=== PATIENT | female | born 1980 | race Caucasian/White ===

== ENCOUNTER 2017-11-27 10:38 | Emergency (ER) | payer OTHER ==
--- NOTE | 2017-11-27 12:07 | UC ---
Laceration HPI - History Of Current Complaint Chief Complaint: UCLaceration Stated Complaint: FINGER LAC Time Seen by Provider: 11/27/17 11:34 Hx Last Menstrual Period: 11/05/17 Pain Intensity: 0 - Allergies/Home Medications Allergies/Adverse Reactions: Allergies Allergy/AdvReac Type Severity Reaction Status Date / Time Penicillins Allergy Rash Verified 11/27/17 10:53 Home Medications: Home Medications Levothyroxine TAB* [Synthroid 75 MCG TAB*] 75 mcg PO DAILY 11/27/17 [History Confirmed 11/27/17] PMH/Surg Hx/FS Hx/Imm Hx - Surgical History Surgical History: None - Social History Alcohol Use: Rare Substance Use Type: None Smoking Status (MU): Never Smoked Tobacco Review of Systems All Other Systems Reviewed And Are Negative: Yes Physical Exam - Summary Physical Exam Summary: Patient states she was cooking and using a cori about 45 min ago when she cut her 4th left finger with it. Last tetanus vaccine about 6-7 years ago. Denies numbness, she controlled bleeding with compression. Triage Information Reviewed: Yes Appearance: Well-Appearing Vital Signs: Initial Vital Signs Temp 100.5 F 11/27/17 10:55 Pulse 66 11/27/17 10:55 Resp 16 11/27/17 10:55 BP 135/84 11/27/17 10:55 Pulse Ox 99 11/27/17 10:55 Vital Signs Reviewed: Yes Eyes: Positive: Conjunctiva Clear ENT: Positive: Pharynx normal Neck: Positive: Supple, Nontender, No Lymphadenopathy Respiratory: Positive: Chest non-tender, Lungs clear, Normal breath sounds Cardiovascular: Positive: RRR, No Murmur, Pulses Normal Skin Exam: Other - circular laceration tip of 4th left finger, no bleeding approx 0.8 mm in diameter Laceration Repair - Laceration Repair 1 Description: Irregular - 0.8 Laceration Size After Repair: Length (cm), Width (mm) - 8mm in diameter, Depth ( mm) - 3 Modified For Repair: No Cleansing Completed Via Routine Prep: Yes Closure Material: Skin Adhesive Closure Method: Single Layer Laceration Course/Dx - Course/Dx Course Of Treatment: surgical glue applied, keep dry, dressing applied. f/u with PCP - Differential Dx - Laceration/Wound Provider Diagnoses: laceration left 4th fingertip Discharge - Sign-Out/Discharge Documenting (check all that apply): Discharge - Discharge Plan Condition: Stable Disposition: HOME Patient Education Materials: Laceration (ED) Referrals: Elodia Zapata MD [Primary Care Provider] - - Billing Disposition and Condition Condition: STABLE Disposition: HOME Images Hands: 1 - circular laceration 8mm diameter
== END 2017-11-27 12:02 | disposition home or self-care (01) ==
LOC: UCEAST 10:38
DX: S61.215A Laceration without foreign body of left ring finger without damage to nail, initial encounter (principal); W27.4XXA Contact with kitchen utensil, initial encounter; Y93.G3 Activity, cooking and baking; Y92.9 Unspecified place or not applicable; Z88.0 Allergy status to penicillin
CPT/HCPCS: 12001; 99201; G0463